=== PATIENT | male | born 1970 | race Caucasian/White ===

== ENCOUNTER 2025-03-20 03:13 | Emergency (ER) | payer OTHER ==
[~2025-03-20] VITALS: Ht 185.4 cm; Wt 108.9 kg
[2025-03-20 03:19] VITALS: BP 144/91
[2025-03-20 04:05] VITALS: BP 139/88; O2SAT 97
== END 2025-03-20 03:52 | disposition home or self-care (01) ==
LOC: ER 03:13
DX: M79.662 Pain in left lower leg (principal); F12.90 Cannabis use, unspecified, uncomplicated; E78.5 Hyperlipidemia, unspecified; I51.9 Heart disease, unspecified; Z86.718 Personal history of other venous thrombosis and embolism; W19.XXXA Unspecified fall, initial encounter; Y93.89 Activity, other specified; Y92.89 Other specified places as the place of occurrence of the external cause; Y99.9 Unspecified external cause status
CPT/HCPCS: A4606; A4663